=== PATIENT | male | born 1955 | race Caucasian/White ===

== ENCOUNTER 2018-02-13 01:32 | Emergency (ER) | payer MEDICAID ==
[~2018-02-13] VITALS: Ht 180.3 cm; Wt 71.4 kg
[2018-02-13] MEDS ORDERED: ACETAMINOPHEN 325 MG TABLET ONE (01:55)
[2018-02-13] MEDS ORDERED: ACETAMINOPHEN 325 MG TABLET PO ONE (02:00)
[2018-02-13 03:24] VITALS: BP 100/63
== END 2018-02-13 03:35 | disposition home or self-care (01) ==
LOC: ED 02:29
DX: G89.11 Acute pain due to trauma (principal); M25.522 Pain in left elbow; M25.512 Pain in left shoulder; F17.200 Nicotine dependence, unspecified, uncomplicated; W01.0XXA Fall on same level from slipping, tripping and stumbling without subsequent striking against object, initial encounter; Y93.89 Activity, other specified; Y92.89 Other specified places as the place of occurrence of the external cause; Y99.8 Other external cause status
CPT/HCPCS: 99284